=== PATIENT | female | born 1980 | race African-American/Black ===

== ENCOUNTER 2023-01-01 06:38 | Emergency (ER) | payer SELFPAY ==
[2023-01-01] MEDS ORDERED: BACITRACIN OINTMENT 28 GM TUBE TOP STA (07:32)
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
[2023-01-01] MEDS ORDERED: Tetanus/Diphtheria/Pertussis (Acell) ADULT Vaccine 0.5 ML IM ONE (07:45)
[2023-01-01 08:07] VITALS: BP 147/84
== END 2023-01-01 08:07 | disposition home or self-care (01) ==
LOC: ER 06:41
DX: T21.22XA Burn of second degree of abdominal wall, initial encounter (principal); T31.0 Burns involving less than 10% of body surface; Z23 Encounter for immunization; X11.8XXA Contact with other hot tap-water, initial encounter
CPT/HCPCS: 90715; 99284